=== PATIENT | male | born 1975 | race Hispanic/Latino ===

== ENCOUNTER 2019-06-08 13:47 | Outpatient (CLI) | payer BC ==
--- NOTE | 2019-06-08 16:01 | Magnetic Resonance Report ---
MRI left shoulder without contrast INDICATION: M25.512 PAIN IN LEFT SHOULDER. COMPARISON: None FINDINGS: There is an artifact involving the lateral aspect of the shoulder which involves the humer al head where there is incomplete fat saturation. There is mild acromioclavicular degenerative arthrosis with no acute osseous abnormality. There is circumferential labral fraying with a superior labral tear extending posterior to the biceps anchor. The biceps tendon is intact. The rotator cuff, most notably the anterior aspect of the supraspinatus tendon, is incompletely evalu ated given the above-mentioned artifact. IMPRESSION: 1. Limited exam because of artifact as outlined above. 2. Superior labral tear extending posterior to the biceps anchor. 3. Mild acromioclavicular DJD. Signer Name: Torito Dowd MD Signed: 06/08/2019 3:56 PM Workstation Name: [id number]
== END 2019-06-08 13:48 | disposition home or self-care (01) ==
LOC: MRI 13:47
PROVIDERS: ATTEND Orthopaedic Surgery
DX: M19.012 Primary osteoarthritis, left shoulder (principal)